=== PATIENT | female | born 1960 | race Caucasian/White ===

== ENCOUNTER → 2018-02-10 | Outpatient (CLI) | payer BC, OTHER ==
[~2018-02-10] MED LIST: ATIVAN1 MG PO; AZITHROMYCIN 2250 MG PO; COLESTID1 GM PO; ENDOCET 5-3251 EACH PO; PREDNISONE 20 M20 M1 PO; PROTONIX 20 MG20 M1 PO; VENTOLIN HFA 1818 GM INH; XANAX 0.5 MG0.5 MG; ZANAFLEX4 M1 PO
== END ==
LOC: M.RAD 16:10
DX: Z12.31 Encounter for screening mammogram for malignant neoplasm of breast (principal)

== ENCOUNTER 2018-05-31 13:43 | Emergency (ER) | payer BC ==
[~2018-05-31] VITALS: Ht 162.6 cm; Wt 91.6 kg
[2018-05-31] MEDS ORDERED: PROTONIX40 M1 PO (14:18)
[2018-05-31] MEDS ORDERED: CHLORTHALIDONE25 MG PO (14:18)
[2018-05-31] MEDS ORDERED: EFFEXOR XR37.5 MG PO (14:19)
[2018-05-31] MEDS ORDERED: ONDANSETRON HCL4 M2 PO (14:19)
[2018-05-31 14:35] LABS: URINE BILIRUBIN NEGATIVE (Negative); URINE BLOOD 1+ (Negative); URINE CLARITY CLEAR; URINE COLOR YELLOW; URINE GLUCOSE-RANDOM NEGATIVE (Negative); URINE KETONES NEGATIVE (Negative); URINE LEUKOCYTES-REFLEX NEGATIVE (Negative); URINE NITRITE-REFLEX NEGATIVE (Negative); URINE PROTEIN NEGATIVE (Negative)
[2018-05-31 14:53] LABS: HYALINE CASTS 0-3 Few /LPF (None Seen); MUCUS 0-3 Light strn/LPF (None Seen); SQUAMOUS >10 Many /LPF (0-3)
[2018-05-31 14:54] LABS: BACTERIA-REFLEX 1-9 Few /HPF (None Seen); CRYSTALS None Seen /LPF (None Seen); URINE RBC 0-2 Rare /HPF (0-2); URINE WBC-REFLEX 0-5 Rare /HPF (0-5)
[2018-05-31 14:56] LABS: CALCIUM 9.4 mg/dL (8.5-10.1); CREATININE 1.1 mg/dL (0.6-1.3)
[2018-05-31 15:01] LABS: TOTAL BILIRUBIN 0.7 mg/dL (<0.1-1.0)
[2018-05-31 15:24] LABS: ABSOLUTE BASOPHILS 0.1 thou/uL (0.0-0.2); ABSOLUTE EOSINOPHILS 0.2 thou/uL (0.0-0.7); ABSOLUTE LYMPHOCYTES 1.6 thou/uL (0.8-5.3); ABSOLUTE MONOCYTES 0.6 thou/uL (0.0-1.2); ABSOLUTE NEUTROPHILS 6.7 thou/uL (1.6-8.1); EOSINOPHILS 1.8 %; HEMATOCRIT 47.8 % (37.0-47.0); HEMOGLOBIN 16.4 gm/dL (12.0-15.0); MCH 29.1 pg (26.0-34.0); MCHC 34.4 g/dL (28.0-37.0); MCV 84.5 fL (80.0-100.0); MONOCYTES 6.3 %; MPV 8.5 fl. (7.2-11.1); NUCLEATED RBCS 0 /100WBC; PLATELET COUNT* 270 thou/uL (150-400); POLYS 73.9 %; RBC 5.66 mil/uL (4.20-5.00); RDW-CV 13.8 % (10.5-14.5); WBC 9.1 thou/uL (4.0-11.0)
[2018-05-31] MEDS ORDERED: MIRALAX17 GM PO (16:38)
[2018-05-31] MEDS ORDERED: CITRATE OF MAG296 ML PO (16:38)
[2018-05-31 17:06] VITALS: BP 152/78
== END 2018-05-31 17:07 | disposition home or self-care (01) ==
LOC: M.ERS 13:43
PROVIDERS: Nurse Practitioner Family
DX: K59.00 Constipation, unspecified (principal); F41.9 Anxiety disorder, unspecified; Z90.49 Acquired absence of other specified parts of digestive tract; Z90.710 Acquired absence of both cervix and uterus; Z88.1 Allergy status to other antibiotic agents; Z88.2 Allergy status to sulfonamides; Z88.8 Allergy status to other drugs, medicaments and biological substances

== ENCOUNTER → 2019-02-21 | Outpatient (CLI) | payer BC ==
[~2019-02-21] MED LIST changes: +CHLORTHALIDONE25 MG PO; +CITRATE OF MAG296 ML PO; +EFFEXOR XR37.5 MG PO; +MIRALAX17 GM PO; +ONDANSETRON HCL4 M2 PO; +PROTONIX40 M1 PO
== END ==
LOC: M.RAD 13:50
DX: Z12.31 Encounter for screening mammogram for malignant neoplasm of breast (principal)

== ENCOUNTER → 2020-01-30 | Outpatient (CLI) | payer BC | LOC: M.RAD 10:30 | PROVIDERS: ATTEND Specialist | DX: Z12.31 Encounter for screening mammogram for malignant neoplasm of breast (principal) ==